=== PATIENT | male | born 1960 | race Caucasian/White ===

== ENCOUNTER 2017-09-17 07:17 | Day surgery (SDC) | payer BC ==
[~2017-09-17] VITALS: Ht 167.6 cm; Wt 68.0 kg
--- OUTSIDE RECORDS SUMMARY | 2017-09-17 07:20 | XMS REPORT | Continuity of Care Document ---
Author Author [facility] Organization [facility] Address Unknown Phone Unavailable Allergies Active Description Code Type Severity Reaction Onset Reported/Identified Relationship to Patient Clinical Status Yes No Known Drug Allergies [id number] Drug Allergy Unknown N/ A 10/03/2010 Medications Problems Date Dx Coded Attending Type Code Diagnosis Diagnosed By 06/02/2013 ABBEY ZIMMERMAN, ZACK Gilliland Ot V12.72 PERSONAL HISTORY OF COLONIC POLYPS 06/02/2013 ABBEY ZIMMERMAN, ZACK Gilliland Ot V16.0 FAMILY HX-GI MALIGNANCY 12/07/2014 JOEL DO ZACK F Ot V43.65 12/07/2014 JOEL DO, ZACK F Ot V54.81 12/07/2014 JOEL DO, ZACK F Ot V57.1 12/24/2014 JOEL DO, ZACK F Ot V43.65 12/24/2014 JOEL DO, ZACK F Ot V54.81 12/24/2014 JOEL DO, ZACK F Ot V57.1 02/02/2015 JOEL DO, ZACK F Ot V43.65 KNEE JOINT REPLACEMENT STATUS 02/02/2015 JOEL DO, ZACK F Ot V54.81 AFTERCARE FOLLOWING JOINT REPLACEMENT 02/02/2015 JOEL DO ZACK F Ot V57.1 PHYSICAL THERAPY NEC 09/10/2017 ZACK POTTER MD Ot V72.84 EXAM PRE-OPERATIVE NOS 09/11/2017 MARNIE ONEIL MD Ot Z01.818 ENCOUNTER FOR OTHER PREPROCEDURAL EXAMIN 09/11/2017 MARNIE ONEIL MD Ot Z12.11 ENCOUNTER FOR SCREENING FOR MALIGNANT NE 09/11/2017 ZACK POTTER MD Ot V72.84 EXAM PRE-OPERATIVE NOS 09/11/2017 MARNIE ONEIL MD Ot Z01.818 ENCOUNTER FOR OTHER PREPROCEDURAL EXAMIN 09/11/2017 MARNIE ONEIL MD Ot Z12.11 ENCOUNTER FOR SCREENING FOR MALIGNANT NE 09/12/2017 MARNIE ONEIL MD Ot Z01.818 ENCOUNTER FOR OTHER PREPROCEDURAL EXAMIN 09/12/2017 MARNIE ONEIL MD Ot Z12.11 ENCOUNTER FOR SCREENING FOR MALIGNANT NE Procedures Results Encounters ACCT No. Visit Date/Time Discharge Status Pt. Type Provider Facility Loc./Unit Complaint [id number] 09/10/2017 05:42:00 2016 23:59:59 CLS Outpatient MARNIE ONEIL MD [facility] PREOP SCREENING [id number] 12/21/2014 09:44:00 2014 23:59:59 CLS Outpatient ZACK MALDONADO DO [facility] REHAB S/P L TKR [id number] 11/19/2014 09:18:00 2014 23:59:59 CLS Preadmit ZACK MALDONADO DO [facility] HH ANTICOAGULANT THERAPY [id number] 06/02/2013 06:34:00 2012 08:48:00 DIS Outpatient ZACK POTTER MD [facility] HISTORY OF POLYPS [id number] 05/28/2013 08:10:00 2012 23:59:59 CLS Outpatient ZACK POTTER MD [facility] PREOP HISTORY OF POLYPS [id number] 09/17/2017 09:30:00 PEN Preadmit MARNIE ONEIL MD [facility] ENDO SCREENING
[2017-09-17 07:57] VITALS: BP 138/93
[2017-09-17] MEDS ORDERED: HURRICAINE EXT TUBE (BENZOCAINE) XX PRN (08:00)
[2017-09-17] MEDS ORDERED: NS IV 500 ML 500 ML IV PRN (08:00)
[2017-09-17] MEDS ORDERED: fentaNYL INJECTION 100 MCG/2 ML AMP ONE ×2 (09:04)
[2017-09-17] MEDS ORDERED: HURRICAINE EXT TUBE (BENZOCAINE) ONE (09:05)
[2017-09-17] MEDS ORDERED: MIDAZOLAM 2 MG/2 ML (VERSED) VIAL ONE ×4 (09:05)
[2017-09-17] MEDS: MIDAZOLAM 2 MG/2 ML (VERSED) VIAL IVP PRN ×3 (09:15→09:32)
[2017-09-17] MEDS: fentaNYL INJECTION 100 MCG/2 ML AMP IVP PRN ×2 (09:16→09:20)
--- NOTE | 2017-09-17 09:21 | History & Physicial ---
History of Present Illness History of Present Illness Reason for visit/HPI Patient is seen today in no acute distress for a screening colonoscopy. Patient has a personal family history of polyps and a positive family history. His mother was found to have a mass in her colon but before they were able to do a resection at the age of 68. This is the patient's third colonoscopy. He denies noticing blood in his stool or change in his stool caliber. Patient states the prep went well. Date of Admission Date Seen by Provider: Sep 17, 2017 Time Seen by Provider: 09:00 I consulted on this patient on 09/17/17 09:16 Attending Physician Yuan Gannon MD Consult Allergies and Home Medications Allergies Coded Allergies: No Known Drug Allergies (Unverified , 10/03/10) Home Medications No Active Prescriptions or Reported Meds Past Swhusoy-Cxwatk-Fsvswz Hx Patient Social History Employed/Student: employed Alcohol Use: Rarely Uses Number of Drinks Today: 0 Recreational Drug Use: No Smoking Status: Never a Smoker Recent Foreign Travel: No Contact w/other who traveled: No Recent Hopitalizations: No Recent Infectious Disease Expo: No Immunizations Up To Date Date of Influenza Vaccine: Sep 03, 2017 Seasonal Allergies Seasonal Allergies: No Surgeries Joint Replacement Constitutional: no symptoms reported EENTM: no symptoms reported Respiratory: no symptoms reported Cardiovascular: no symptoms reported Gastrointestinal: diarrhea Genitourinary: no symptoms reported Musculoskeletal: no symptoms reported Physical Exam Vital Signs Vital Sign - Last 12Hours 09/17/17 07:57 Temp 98.7 Pulse 88 Resp 16 B/P (MAP) 138/93 Pulse Ox 97 O2 Delivery Room Air Capillary Refill : General Appearance: No Apparent Distress, WD/WN HEENT: PERRL/EOMI Neck: Full Range of Motion, Normal Inspection Respiratory: Chest Non Tender, Lungs Clear, Normal Breath Sounds, No Accessory Muscle Use, No Respiratory Distress Cardiovascular: Regular Rate, Rhythm, No Edema, No Gallop, No JVD, No Murmur Gastrointestinal: Normal Bowel Sounds, No Organomegaly, No Pulsatile Mass, Non Tender, Soft Neurologic/Psychiatric: Alert, Oriented x3 Assessment/Plan Assessment and Plan Screening colonoscopy today. Personal history of polyps and positive family history of colon cancer. Procedure was described and patient agreed to move forward. Problems: DEREJE ARCOS MED STUDENT Sep 17, 2017 09:21
--- NOTE | 2017-09-17 09:23 | Conscious Sedation/ASA ---
Conscious Sedation Pre-Proced Time Reviewed: 08:55 ASA Class: 2 Airway Mallampati Classification: (kasaan appropriate class) I. II. III, IV Lungs Heart ASA score ASA 1: a normal healthy patient ASA 2: a patient with a mild systemic disease (mid diabetes, controlled hypertension, obesity ASA 3: a patient with a severe systemic disease that limits activity (angina , COPD, prior Myocardial infarction) ASA 4: a patient with an incapacitating disease that is a constant threat to life (CHF, renal failure) ASA 5: a moribund patient not expected to survive 24 hrs. (ruptured aneurysm) ASA 6: a declared brain patient whose organs are being harvested. For emergent operations, add the letter E after the classification Grade 1 Sedation Plan: Discussed options with patient/fam Note The patient is an appropriate candidate to undergo the planned procedure, sedation, and anesthesia. The patient immediately re-assessed prior to indication. MARNIE ONEIL MD Sep 17, 2017 9:23 am
--- NOTE | 2017-09-17 09:56 | Endo Procedure Record ---
Endo Procedure Report Date of Procedure Sep 17, 2017 Surgeon (s) MARNIE ONEIL MD Post Procedure/Op Diagnosis EGD: Grade 2 esophagitis. Antral and duodenal erosions Normal colonoscopy Procedure Performed EGD with antral biopsy Colonoscopy to cecum Description of Procedure Anesthesia Type: Conscious Sedation Specimen(s) collected/removed antral mucosa for H. pylori Description of the Procedure Indication for the procedures: This gentleman came in for an endoscopic assessment of symptoms of reflux disease and for surveillance colonoscopy. He reported a personal history of polyps and a family history of colon cancer, in his mother. Informed consent was obtained after reviewing the procedures in detail. Description of the procedures: EGD: He was placed in left lateral decubitus position and his vital signs were monitored. Conscious sedation was achieved using Versed and fentanyl. The flexible gastroscope was introduced down the esophagus, past the stomach, into the proximal duodenum. Findings: Esophagus: Grade 2 esophagitis. Stomach A few shallow erosions were found at the antrum. Biopsy for H. pylori was obtained. Duodenum: 2 shallow erosions at the first part. There was no distinct ulceration. Daughter the procedure well and was turned around in preparation for colonoscopy. Impression: Symptoms of reflux disease. Grade 2 esophagitis. Antral and duodenal erosions. H. pylori pending. Colonoscopy: Digital rectal examination was unremarkable. The colonoscope was then introduced into the rectum and advanced all the way up to the cecum. The quality of bowel preparation was excellent. The scope was then withdrawn slowly and the mucosa examined in a systematic fashion. There was no abnormality. He tolerated the procedures well and was taken back to the nursing area in a stable condition. Impression: Surveillance colonoscopy. No polyps. Recommend repeating in 5 years. Copies To: CLEMENT RAMIREZ MD, XAVIER M MD Sep 17, 2017 9:56 am
[2017-09-17] MEDS ORDERED: PANT40TA2 PO (09:57)
--- NOTE | 2017-09-17 09:57 | Discharge Inst-Simple/Standard ---
Discharge Inst-Standard Discharge Medications New, Converted or Re-Newed RX: RX on Chart Patient Instructions/Follow Up Plan of Care/Instructions/FU: repeat colonoscopy in 5 years Activity as Tolerated: Yes Discharge Diet: No Restrictions MARNIE ONEIL MD Sep 17, 2017 9:57 am
[2017-09-17 10:00] VITALS: BP 139/89
[2017-09-17 10:30] VITALS: BP 136/89
[2017-09-17 10:40] VITALS: BP 136/89
== END 2017-09-17 10:40 | disposition home or self-care (01) ==
LOC: ENDO 07:17
PROVIDERS: ATTEND Surgery
DX: K20.9 Esophagitis, unspecified (principal); K25.9 Gastric ulcer, unspecified as acute or chronic, without hemorrhage or perforation; K26.9 Duodenal ulcer, unspecified as acute or chronic, without hemorrhage or perforation; Z86.010 Personal history of colon polyps; Z80.0 Family history of malignant neoplasm of digestive organs

== ENCOUNTER → 2018-03-04 | Outpatient (CLI) | payer BC ==
[~2018-03-04] MED LIST: PANT40TA2 PO
--- NOTE | 2018-03-04 11:54 | Diagnostic Imaging Report ---
INDICATION: Wellness checkup. FINDINGS: An incidental azygous fissure in the right upper lobe is noted. The lungs are free of infiltrate. No effusion or pneumothorax. No failure pattern. IMPRESSION: Unremarkable two-view chest. Dictated by: Dictated on workstation # [id number]
== END ==
LOC: RAD 08:49
PROVIDERS: ATTEND Nurse Practitioner Family
DX: R05 Cough (principal); K21.9 Gastro-esophageal reflux disease without esophagitis
CPT/HCPCS: 71046

== ENCOUNTER → 2018-03-11 | Outpatient (CLI) | payer BC ==
[~2018-03-11] MED LIST changes: +RT-ALBUTEROL SULF 2.5 MG/3 ML PRE-MIX VIAL INH ONE; +RT-ALBUTEROL SULF 2.5 MG/3 ML PRE-MIX VIAL ONE
== END ==
LOC: RT 08:24
PROVIDERS: ATTEND Nurse Practitioner Family
DX: R05 Cough (principal)
CPT/HCPCS: 94060; 94726; 94729

== ENCOUNTER 2022-05-29 21:11 | Emergency (ER) | payer BC, OTHER ==
[~2022-05-29] VITALS: Ht 169 cm; Wt 76.2 kg
[~2022-05-29 21:11] MED LIST changes: -RT-ALBUTEROL SULF 2.5 MG/3 ML PRE-MIX VIAL INH ONE; -RT-ALBUTEROL SULF 2.5 MG/3 ML PRE-MIX VIAL ONE
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
[2022-05-29] MEDS ORDERED: LACTATED RINGERS 1,000 ML IV ONE (21:45)
[2022-05-29 21:58] LABS: BASOPHILS # (AUTO) 0.1 10^3/uL (0.0-0.1); BASOPHILS % (AUTO) 0 % (0-10); EOSINOPHILS % (AUTO) 0 % (0-10); HEMATOCRIT 42 % (40-54); HEMOGLOBIN 14.6 g/dL (13.3-17.7); LYMPHOCYTES # (AUTO) 0.9 10^3/uL (1.0-4.0); LYMPHOCYTES % (AUTO) 8 % (12-44); MEAN CORPUSCULAR HEMOGLOBIN 32 pg (25-34); MEAN CORPUSCULAR HGB CONC 35 g/dL (32-36); MEAN CORPUSCULAR VOLUME 90 fL (80-99); MEAN PLATELET VOLUME 8.4 fL (9.0-12.2); MONOCYTES # (AUTO) 0.7 10^3/uL (0.0-1.0); MONOCYTES % (AUTO) 6 % (0-12); NEUTROPHILS # (AUTO) 9.5 10^3/uL (1.8-7.8); NEUTROPHILS % (AUTO) 85 % (42-75); PLATELET COUNT 285 10^3/uL (130-400); WHITE BLOOD COUNT 11.2 10^3/uL (4.3-11.0)
[2022-05-29] MEDS ORDERED: TETANUS,DIPTH,PERTUSS P/F (BOOSTRIX) 0.5 ML VIAL IM ONE (22:00)
[2022-05-29 22:05] VITALS: BP_SYST 144; BP_SYST 147; BP_SYST 156; BP_DIAS 96; BP_DIAS 99
[2022-05-29 22:06] LABS: ALBUMIN 4.3 GM/DL (3.2-4.5); POTASSIUM 4.2 MMOL/L (3.6-5.0)
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
[2022-05-29 22:08] LABS: TOTAL PROTEIN 7.4 GM/DL (6.4-8.2)
[2022-05-29 22:10] LABS: BILIRUBIN,TOTAL 0.4 MG/DL (0.1-1.0)
[2022-05-29 22:12] LABS: CREATININE SERUM 0.8 MG/DL (0.60-1.30)
[2022-05-29 22:29] LABS: BILIRUBIN,URINE NEGATIVE (NEGATIVE); CLARITY,URINE CLEAR; COLOR,URINE YELLOW; GLUCOSE, URINE (UA) NEGATIVE (NEGATIVE); KETONES,URINE NEGATIVE (NEGATIVE); LEUKOCYTE ESTERASE ,URINE NEGATIVE (NEGATIVE); NITRITE,URINE NEGATIVE (NEGATIVE); PH,URINE 5.5 (5-9); PROTEIN,URINE NEGATIVE (NEGATIVE)
[2022-05-29 22:42] LABS: BACTERIA,URINE TRACE /HPF; HYALINE CASTS, URINE 0-2 /LPF; RBC,URINE RARE /HPF; WBC,URINE RARE /HPF
[2022-05-29] MEDS ORDERED: CYCL10TA25 PO (22:45)
[2022-05-29 22:55] VITALS: BP 140/92
== END 2022-05-29 23:00 | disposition home or self-care (01) ==
LOC: EDUNIT# 21:11 → ER 21:14
DX: S90.412A Abrasion, left great toe, initial encounter (principal); V49.40XA Driver injured in collision with unspecified motor vehicles in traffic accident, initial encounter
CPT/HCPCS: 36415; 70450; 72125; 80053; 81000; 85025; 90715

== ENCOUNTER → 2022-06-01 | Outpatient (CLI) | payer OTHER ==
[~2022-06-01] MED LIST changes: +CYCL10TA25 PO
== END ==
LOC: LABNPT 13:40
PROVIDERS: ATTEND Family Medicine
DX: Z01.89 Encounter for other specified special examinations (principal)
CPT/HCPCS: 80320

== ENCOUNTER 2022-06-14 05:37 | Outpatient (RCR) | payer OTHER ==
[~2022-06-14] VITALS: Ht 167.7 cm; Wt 75.0 kg
== END 2022-06-15 10:19 | disposition home or self-care (01) ==
LOC: PREOP 05:37 → EDSTATUS 09:15 → PREOP 06-15 10:19
PROVIDERS: ATTEND Internal Medicine
DX: Z01.818 Encounter for other preprocedural examination (principal)

== ENCOUNTER 2022-06-23 07:06 | Day surgery (SDC) | payer OTHER ==
--- NOTE | 2022-06-13 20:33 | HISTORY AND PHYSICAL ---
DATE OF SERVICE: PANENDOSCOPY HISTORY AND PHYSICAL HISTORY OF PRESENT ILLNESS: The patient is a 62-year-old white male referred by Dr. lUisses Arriola for panendoscopy. The patient reports he has been having some increase in dysphagia to solids only over the past several months. He has a history of reflux, but not been taking any regular medication as of late. His electronic medical record was reviewed and he had undergone panendoscopy 5 years ago for surveillance of colon polyps and a family history as well as reflux symptoms. This was done per Dr. Gannon, who noted reported grade II esophagitis on his EGD. He had some mild gastritis and was noted to be Helicobacter positive. It is not clear as to whether or not antibiotics were administered at that time. He had no polyps at that time. He reports that his mother had a colon mass, was presumed to be colon cancer, but may have ultimately of sepsis at the age of 68. This was the same year that her colon mass was diagnosed as he recalls. He is not aware of any other family history. He did have polyps on his first colonoscopy 15 years ago. Last 2 colonoscopies have been unremarkable and the last one again in 2017. He has noted no melena or bright red blood per rectum and reports his weight has been stable. PAST MEDICAL HISTORY: Otherwise, noncontributory. He takes no medication. He has some occasional social alcohol intake with no past smoking history. PAST SURGICAL HISTORY: He has had left total knee replacement for arthritis a number of years ago. FAMILY HISTORY: Mother apparently with colon cancer at the age of 68. Dad of diabetic complications in his late 60s, has one sister who of bladder cancer at the age of 58. One sister living alive and well at 60 and one brother who has had kidney and liver transplant, not sure as to the underlying health issues necessitating transplant. SOCIAL HISTORY: The patient works as a meza. No past smoking history. Occasional social alcohol intake. REVIEW OF SYSTEMS: CONSTITUTIONAL: Denies night sweats, chills, fever, change in weight. GASTROINTESTINAL: As noted in the HPI. PULMONARY: Denies cough, wheezing or shortness of breath. CARDIOVASCULAR: Denies orthopnea, PND, pedal edema, syncope or chest discomfort. PHYSICAL EXAMINATION: GENERAL: Reveals a pleasant white male, appears to be in no acute distress. HEENT: Unremarkable. Sclerae nonicteric. VITAL SIGNS: Weight 168.6 pounds. Initial blood pressure 150/100, at the end of the interview 140/90. CHEST: Clear to auscultation. CARDIOVASCULAR: Reveals a regular rate and rhythm without murmur, S3 or S4. ABDOMEN: Soft, supple without mass, organomegaly or tenderness. EXTREMITIES: Reveal no cyanosis, clubbing or edema. ASSESSMENT AND PLAN: The patient is being set up for surveillance colonoscopy due to family history of colon cancer and a past history of colon polyps as well as diagnostic EGD due to history of dysphagia with past reported grade II esophagitis per Dr. Gannon report on last panendoscopy 5 years ago. Prep instructions were given and questions were answered. I thank you for the referral of this pleasant gentleman. Job ID: [id number] DocumentID: [id number] Dictated Date: 05/22/2022 16:56:39 Dumping Machine Operator Date: 05/22/2022 17:21:12 Dictated By: HAYDEN SIEGEL MD MTDD
[~2022-06-23] VITALS: Ht 167.7 cm; Wt 75.0 kg
[2022-06-23] MEDS ORDERED: LACTATED RINGERS 1,000 ML IV STA (07:11)
[2022-06-23] MEDS ORDERED: HURRICAINE EXT TUBE (BENZOCAINE) XX PRN (07:15)
[2022-06-23 07:30] VITALS: BP 135/90
[2022-06-23] MEDS ORDERED: PROPOFOL INJECTION 50 ML IV ONE (07:38)
[2022-06-23] MEDS ORDERED: MIDAZOLAM 2 MG/2 ML (VERSED) VIAL ONE (07:38)
--- NOTE | 2022-06-23 07:50 | Pre-Op Note & Conscious Sedat ---
Pre-Operative Progress Note Date H&P Reviewed: Jun 23, 2022 Time H&P Reviewed: 07:40 History & Physical: H&P Reviewed, Patient Examed, No changes noted Pre-Op Diagnosis: screeing colon and dysphagia Conscious Sedation Pre-Proced ASA Score 2 For ASA 3 and 4: Consider anesthesia and medical clearance. Also, for patients with a history of failed moderate sedation consider anesthesia. Airway Lungs Heart ASA score ASA 1: a normal healthy patient ASA 2: a patient with a mild systemic disease (mid diabetes, controlled hypertension, obesity ASA 3: a patient with a severe systemic disease that limits activity (angina, COPD, prior Myocardial infarction) ASA 4: a patient with an incapacitating disease that is a constant threat to life (CHF, renal failure) ASA 5: a moribund patient not expected to survive 24 hrs. (ruptured aneurysm) ASA 6: a declared brain- patient whose organs are being harvested. For emergent operations, add the letter E after the classification Mallampati Classification Grade 2 Sedation Plan Analgesia, Amnesia, Plan communicated to team members, Discussed options with patient/fam, Discussed risks with patient/fam The patient is an appropriate candidate to undergo the planned procedure, sedation, and anesthesia. The patient immediately re-assessed prior to indication. HAYDEN SIEGEL MD Jun 23, 2022 07:50
[2022-06-23 08:20] VITALS: BP 108/65
--- NOTE | 2022-06-23 08:21 | Progress Note-Post Operative ---
Post-Procedure Note Physician (s)/Plant Director (s) Physician HAYDEN SIEGEL MD Pre-Procedure Diagnosis Pre-Procedure Diagnosis: screeing colon and dysphagia Post-Procedure Diagnosis Post-operative diagnosis: antral gastritis otherwise normal EGD one 2mm sessile polyp cauterized prox ascending colon otherwise normal colon HAYDEN SIEGEL MD Jun 23, 2022 08:21
[2022-06-23 08:25] VITALS: BP 110/65
[2022-06-23 08:30] VITALS: BP 104/64
[2022-06-23 08:33] VITALS: BP 111/67
[2022-06-23 09:00] VITALS: BP 130/80
--- NOTE | 2022-06-23 11:28 | Anesthesia-General Post-Op ---
MAC Patient Condition Mental Status/LOC: Same as Preop Cardiovascular: Satisfactory Nausea/Vomiting: Absent Respiratory: Satisfactory Pain: Controlled Complications: Absent Post Op Complications Complications None Follow Up Care/Instructions Patient Instructions None needed. Anesthesiology Discharge Order Discharge Order Patient is doing well, no complaints, stable vital signs, no apparent adverse anesthesia problems. No complications reported per nursing. BAL CHEUNG CRNA Jun 23, 2022 11:28
--- NOTE | 2022-06-23 14:07 | OPERATIVE REPORT ---
DATE OF SERVICE: PANENDOSCOPY SUMMARY EGD was performed for dysphagia with colonoscopy for followup of colon polyps screening. DESCRIPTION OF PROCEDURE: The patient was placed in the left lateral decubitus position. The endoscope was inserted in the oral cavity and under direct visualization, the esophagus was intubated. The endoscope was passed down the esophagus through stomach and second portion of the duodenum. Careful inspection was made as the endoscope was withdrawn. FINDINGS: The posterior pharynx, epiglottis, arytenoid aperture and true and false vocal folds were unremarkable on visual inspection. The proximal, mid and distal esophagus was unremarkable. The Z line was distinct. There was no evidence for hiatal hernia. No evidence for strictures or extrinsic compression rings or webs were noted. No evidence to suggest Brennan's was noted. Photograph was obtained. There was some erythema noted without evidence for peptic ulcer disease involving the fundus and antrum of the stomach. A biopsy was obtained and submitted for histopathology and Helicobacter evaluation. The pylorus, pyloric channel, duodenal bulb and second portion of the duodenum were unremarkable on gross inspection. ASSESSMENT: No evidence for erosive esophagitis, stricture formation or Brennan's change was noted. Fundal and antral erythema was noted. A biopsy was obtained and submitted for Helicobacter and histopathology with an otherwise normal EGD. Discussed the importance of eating more slowly and more careful attention to mastication. We then proceeded with colonoscopy. The patient was placed in the left lateral decubitus position. Prior to undergoing colonoscopy, digital rectal evaluation was performed. Prostate was unremarkable to digital inspection. No abnormalities were noted on digital inspection of anal canal or distal rectal vault. The colonoscope was then inserted into the rectum and under direct visualization advanced to cecum. The cecum was identified by identification of the ileocecal valve and cecal strap. Photographic documentation was obtained. Careful inspection was made as colonoscope withdrawn. FINDINGS: There was no evidence for internal or external hemorrhoids and the rectum was unremarkable. Several small sigmoid diverticulum were present without evidence for diverticulitis. The descending colon, splenic flexure, transverse colon and hepatic flexure were unremarkable. An 1 to 2 mm sessile hyperplastic-appearing polyp was noted in the proximal ascending colon, was biopsied and ablated with no subsequent blood loss. The cecum and the colon were unremarkable. ASSESSMENT: 1. Mild diverticular disease confined to the sigmoid colon was present without evidence for diverticulitis. 2. One diminutive 2 mm sessile hyperplastic-appearing polyp was removed via hot forceps from the proximal ascending colon with no other abnormalities being noted under good prep conditions. We would advise consideration for repeat screening colonoscopy in 10 years. I thank you for the referral of this pleasant gentleman. Job ID: [id number] DocumentID: [id number] Dictated Date: 06/23/2022 08:25:56 Vehicle Trimmer Date: 06/23/2022 14:06:43 Dictated By: HAYDEN SIEGEL MD
== END 2022-06-23 09:11 | disposition home or self-care (01) ==
LOC: ENDO 07:06
PROVIDERS: ATTEND Internal Medicine
DX: Z12.11 Encounter for screening for malignant neoplasm of colon (principal); D12.2 Benign neoplasm of ascending colon; K29.50 Unspecified chronic gastritis without bleeding; K57.30 Diverticulosis of large intestine without perforation or abscess without bleeding
CPT/HCPCS: 88305; 88342

== ENCOUNTER → 2022-07-24 | Outpatient (CLI) | payer OTHER ==
[2022-07-24 10:27] VITALS: BP 151/94
--- NOTE | 2022-07-24 12:17 | Cardiology Stress Test Report ---
Stress Test Report Date of Procedure/Referring: Date of Procedure: Jul 24, 2022 PCP Ulisses Maurice MD Admitting Physician Admitting Physician: Attending Physician: Blair Braun MD Indications: CP Baseline Heart Rate: 69 Baseline Blood Pressure: Blood Pressure Systolic: 151 Blood Pressure Diastolic: 94 Baseline EKG: Baseline EKG: NSR Summary/Conclusion: Summary: In summary, the patient started exercising with a baseline heart rate, blood pressure and EKG mentioned above Patient was able to exercise for a total of 8 minutes on Randy protocol, METs 9.7 Maximum heart rate 146 Maximum blood pressure 177/79 Stress EKG, Minimal nondiagnostic changes Recovery EKG , Return to baseline Conclusion: 1. Good exercise tolerance for a total of 8 minutes on Randy protocol, 9.4 METs, achieving 91 percent of maximum expected heart rate 2. Minimal nondiagnostic EKG changes with exercise returned to baseline during recovery 3. No arrhythmia was noted Copy Copies To 1: ULISSES MAURICE MD, BASHAR J MD Jul 24, 2022 12:17
== END ==
LOC: CARD 10:00
PROVIDERS: ATTEND Internal Medicine Cardiovascular Disease
DX: R07.9 Chest pain, unspecified (principal)
CPT/HCPCS: 93017